=== PATIENT | female | born 1995 | race Caucasian/White ===

== ENCOUNTER 2018-03-25 10:57 | Outpatient (CLI) | payer OTHER | END 2018-03-25 11:10 | disposition home or self-care (01) | LOC: LAB 10:57 | DX: R51 Headache (principal); R42 Dizziness and giddiness ==

== ENCOUNTER 2018-07-25 10:37 | Outpatient (CLI) | payer OTHER | END 2018-07-25 10:39 | disposition home or self-care (01) | LOC: SONOGRAMA 10:37 | DX: R10.2 Pelvic and perineal pain (principal) ==

== ENCOUNTER → 2020-08-22 15:00 | Outpatient (CLI) | payer OTHER | END | disposition home or self-care (01) | LOC: PPH VACUNA 15:00 | DX: Z23 Encounter for immunization (principal) ==